=== PATIENT | female | born 1950 | race Caucasian/White ===

== ENCOUNTER 2017-09-13 08:00 | Outpatient (CLI) | payer MEDICARE | END 2017-09-13 08:01 | disposition home or self-care (01) | LOC: BICMAMMO 08:00 | PROVIDERS: ATTEND Family Medicine | DX: Z78.0 Asymptomatic menopausal state (principal); M85.852 Other specified disorders of bone density and structure, left thigh; M85.88 Other specified disorders of bone density and structure, other site | CPT/HCPCS: 77080 ==

== ENCOUNTER 2017-09-13 12:28 | Outpatient (CLI) | payer MEDICARE ==
--- NOTE | 2017-09-13 14:17 | CT ---
CT CHEST WITHOUT CONTRAST: 09/13/2017 PROVIDED CLINICAL HISTORY: Screening. Twenty year smoker. FINDINGS: The heart, pericardium, and great vessels demonstrate an unremarkable, unenhanced CT appearance, with the exception of vascular calcification, including coronary calcium. There is no evidence for thora cic lymph node enlargement. A small hiatal hernia is seen. 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 The visualized portions of the upper abdomen appear otherwise unremarkable. There is a 7 mm average axial dimension noncalcified pulmonary nodule involving the right lower lobe. There is a nodular density, which is subpleural in location, at the medial aspect of the right midd le lobe. This measures about 6 mm. The lungs are otherwise free of significant opacity. The airway appears patent and of normal caliber. There is no evidence for pleural fluid or pneumotho rax. The osseous structures demonstrate no concerning osteoblastic or osteolytic lesions. IMPRESSION: 1. Lung-RADS category 3-Probably benign findings. A 7 mm, noncalcified right lower lobe pulmonary n odule is noted, for which six-month follow-up low-dose CT is recommended. Additional subpleural nodu le involving the right middle lobe should also be followed at that time but may represent a lymph nod e. 2. Porcelain gallbladder. Surgical consultation is recommended. 3. Atherosclerosis. CODE T POS: SINDY
== END 2017-09-13 12:29 | disposition home or self-care (01) ==
LOC: CT 12:28
PROVIDERS: ATTEND Family Medicine
DX: Z87.891 Personal history of nicotine dependence (principal); I70.90 Unspecified atherosclerosis; K82.8 Other specified diseases of gallbladder; R91.1 Solitary pulmonary nodule
CPT/HCPCS: G0297

== ENCOUNTER 2017-11-29 10:23 | Outpatient (CLI) | payer MEDICARE | END 2017-11-29 10:24 | disposition home or self-care (01) | LOC: BICMAMMO 10:23 | PROVIDERS: ATTEND Family Medicine | DX: Z12.31 Encounter for screening mammogram for malignant neoplasm of breast (principal); Z80.3 Family history of malignant neoplasm of breast | CPT/HCPCS: 77063; 77067 ==

== ENCOUNTER 2018-03-23 10:18 | Outpatient (CLI) | payer MEDICARE ==
--- NOTE | 2018-03-23 12:08 | CT ---
CT CHEST WITHOUT CONTRAST LOW DOSE PULMONARY SCREENING CT PULMONARY LUNG SCAN: CLINICAL HISTORY: Pulmonary nodule, followup, abnormal CT of lung, nicotine dependence. FINDINGS: The previously documented 7 mm lymph node of the right lower lobe has slightly increased in volume, m easuring 8 mm in size. The previously noted 6 mm subpleural nodular density of the medial aspect of the right middle lobe is again seen. There is an azygous lobe at the medial right upper lung. No pl eural effusion. No evidence of parenchymal consolidation has developed since the prior exam. There is vascular disease. Regional soft tissues are limited in assessment by noncontrast technique. Incidental note of porcelain gallbladder, partially visualized as was documented on prior scan. Slight interval growth of pulmonary nodule within the right lower lobe now measuring 8 mm compared to 7 mm on prior exam. A 6 mm subpleural nodule of the medial aspect of the right middle lobe is gross ly stable. IMPRESSION: Lung RADS category 4A, suspicious. The previously mentioned 7 mm nodule did slightly increase in vol ume which warrants a 3-month followup low-dose screening CT exam. As this finding is suspicious for an early malignancy, given the interval growth and morphology, additionally recommend pulmonary medic ine consultation for further clinical management. POS: SINDY
== END 2018-03-23 10:19 | disposition home or self-care (01) ==
LOC: CT 10:18
PROVIDERS: ATTEND Family Medicine
DX: R91.8 Other nonspecific abnormal finding of lung field (principal); R91.1 Solitary pulmonary nodule; Z87.891 Personal history of nicotine dependence
CPT/HCPCS: G0297

== ENCOUNTER 2018-05-04 10:14 | Outpatient (CLI) | payer MEDICARE ==
[2018-05-04 12:09] LABS: #Eosinphils 0.1 thou/uL (0.0-0.7); #Lymphocytes 1.2 thou/uL (1.20-3.40); #Monocytes 0.2 thou/uL (0.11-0.59); #Neutrophils 1.5 thou/uL (1.40-6.50); %Basophils 1.2 % (0.0-1.0); %Eosinophils 3.8 % (0.0-10.0); %Lymphocytes 39.2 % (21.0-51.0); %Monocytes 7.1 % (0.0-10.0); %Neutrophils 48.8 % (42.0-75.0); Hemoglobin 12.2 g/dL (12.0-16.0); Mean Corpuscular HGB CONC 32.9 g/dL (32.0-36.0); Mean Corpuscular Volume 78.9 fL (78.0-98.0); Mean Platelet Volume 6.6 fL (7.4-10.4); Platelet Count 121 thou/uL (130-400); RBC Distribution Width 14.1 % (11.5-14.5); Red Blood Cell (RBC) Count 4.69 mill/uL (4.20-5.40); White Blood Cell (WBC) Count 3.1 thou/uL (4.8-10.8)
[2018-05-04 12:43] LABS: ALT (SGPT) 23 U/L (8-55); AST (SGOT) 26 U/L (5-34); Albumin 4.3 g/dL (3.4-4.8); Alkaline Phosphatase 74 U/L (40-150); Anion Gap 13 mmol/L (10-20); BUN (Urea Nitrogen) 11 mg/dL (9.8-20.1); Bilirubin, Direct 0.3 mg/dL (0.1-0.3); Bilirubin, Total 0.8 mg/dL (0.2-1.2); Calc. Creatinine Clearance 0 mL/min (70-130); Calcium 9.8 mg/dL (7.8-10.44); Carbon Dioxide 26 mmol/L (23-31); Chloride 101 mmol/L (98-107); Estimated GFR-MDRD 58; Glucose 218 mg/dL (80-115); Potassium 3.9 mmol/L (3.5-5.1); Protein, Total 7.7 g/dL (6.0-8.3); Sodium 136 mmol/L (136-145)
== END 2018-05-04 10:15 | disposition home or self-care (01) ==
LOC: LABBT 10:14
PROVIDERS: ATTEND Surgery
DX: Z01.818 Encounter for other preprocedural examination (principal); K82.8 Other specified diseases of gallbladder
CPT/HCPCS: 80048; 80076; 85025; 93005; 93010

== ENCOUNTER 2018-11-05 09:49 | Outpatient (CLI) | payer MEDICARE ==
[2018-11-05] MEDS ORDERED: Iopamidol 370 76% 100 ML VIAL ONE (10:58)
--- NOTE | 2018-11-05 13:02 | CT ---
WITHOUT VIEW CHEST WITH CONTRAST: HISTORY: Pulmonary nodule, shortness of breath. COMPARISON: CT 03/23/2018. FINDINGS: [place] node is made of an azygous fissure. There is a nodule within the left upper lobe axial imag e 24 measuring 4 mm which is similar. Right lower lobe nodule measuring up to 9 mm is similar. Righ t middle lobe nodule measures up to 6 mm, similar. No new suspicious pulmonary nodule. There is some scarring in the lingula and right middle lobe. No pleural effusion. No pneumothorax. There is a hypodensity in the right lobe of the thyroid which a nonemergent ultrasound can be perform ed. No mediastinal adenopathy. Mild atherosclerotic plaque of the aorta. Prior cholecystectomy. Mild hepatic cirrhosis. The sternum and manubrium are intact. No suspicious osteolytic or osteoblas tic lesion. No displaced rib fracture. IMPRESSION: Similar appearance to the pulmonary nodules. The recommendation is to return to annual screening low -dose CT in March of 2019. POS: TPC
== END 2018-11-05 09:50 | disposition home or self-care (01) ==
LOC: CANPRECLI → CT 09:49
PROVIDERS: ATTEND Internal Medicine Pulmonary Disease
DX: R91.1 Solitary pulmonary nodule (principal)
CPT/HCPCS: 71260; 82565; Q9967

== ENCOUNTER 2018-12-20 10:06 | Outpatient (CLI) | payer MEDICARE ==
--- NOTE | 2018-12-20 10:40 | ULT ---
FGallbladder ultrasound: Multiple grayscale images of right upper quadrant obtained according to protocol. INDICATION: Pain FINDINGS: Liver: Hepatic steatosis. Gallbladder: Absent Gallbladder wall: Normal. Connors's Sign: Negative Common bile duct is normal. Ascites: None IMPRESSION: Surgical absence of gallbladder. Hepatic steatosis.
== END 2018-12-20 10:07 | disposition home or self-care (01) ==
LOC: BICULT 10:06
PROVIDERS: ATTEND Physician Assistant
DX: R10.11 Right upper quadrant pain (principal); K76.0 Fatty (change of) liver, not elsewhere classified; Z90.49 Acquired absence of other specified parts of digestive tract
CPT/HCPCS: 76705

== ENCOUNTER 2019-05-15 09:46 | Outpatient (CLI) | payer MEDICARE ==
[~2019-05-15 09:46] MED LIST: Iopamidol 370 76% 100 ML VIAL ONE
--- NOTE | 2019-05-15 13:09 | CT ---
CT CHEST WITH CONTRAST: 05/15/19 Axial tomograms with IV enhancement with multiplanar reconstruction. INDICATIONS: Follow-up pulmonary nodule. Comparison made to CT chest 11/05/18 and 03/23/18. FINDINGS: Prominent azygos fissure again noted. The 6 mm nodule in the medial right middle lobe is stable. The right lower lobe nodule appears stable measuring approximately 2 mm today. This does not show sig nificant interval change when compared to 10/26/18. The 4 mm nodule in the mid left upper lobe is stable. No new nodule. No infiltrate or effusion. The mediastinum unremarkable. Images through the upper abd omen unremarkable. Degenerative spine changes. IMPRESSION: Stable pulmonary nodules. The right lower lobe nodule is slightly increased in size from 03/23/18 to ; however, it appears stable from 11/05/18. Repeat chest CT without contrast in six months is rec ommended to confirm stability from 11/05/18. POS: SINDY
== END 2019-05-15 09:47 | disposition home or self-care (01) ==
LOC: CT 09:46
PROVIDERS: ATTEND Internal Medicine Pulmonary Disease
DX: R91.8 Other nonspecific abnormal finding of lung field (principal)
CPT/HCPCS: 71260; 82565; Q9967

== ENCOUNTER 2019-11-11 09:35 | Outpatient (CLI) | payer MEDICARE ==
[2019-11-11] MEDS ORDERED: Iopamidol-370 76% 500 ML 1 ML ONE (10:59)
--- NOTE | 2019-11-11 11:20 | CT ---
CT OF CHEST PERFORMED WITHOUT CONTRAST ENHANCEMENT: HISTORY: Followup pulmonary nodule. COMPARISON: 05/15/2019 study. FINDINGS: Azygous lobe is again incidentally noted. Area of nodularity seen in the right middle lobe along the right heart border is stable at approximately 6 mm. A right lower lobe pulmonary nodule. This is u nchanged in size at 10 mm and an approximately 4-5 mm left upper lobe pulmonary nodule is also unchan ged. No significant mediastinal or hilar adenopathy. Visualized liver parenchyma shows no focal findings. The gallbladder has been removed. RIGHT and le ft adrenal glands are normal. Spleen appears borderline and is only partially visualized. IMPRESSION: Stable bilateral pulmonary nodules. Continued followup is recommended. POS: TPC
== END 2019-11-11 09:36 | disposition home or self-care (01) ==
LOC: BICCT 09:35
PROVIDERS: ATTEND Internal Medicine Pulmonary Disease
DX: R91.1 Solitary pulmonary nodule (principal); R91.8 Other nonspecific abnormal finding of lung field
CPT/HCPCS: 71260; 82565

== ENCOUNTER 2019-11-20 08:59 | Outpatient (CLI) | payer MEDICARE ==
--- NOTE | 2019-11-20 10:26 | MMO ---
Bilateral MAMMO Bilat Screen [facility]. CLINICAL HISTORY: Patient is 69 years old and is seen for screening. The patient has the following family history of breast cancer: paternal grandmother, at age 85. The patient has no personal history of cancer. VIEWS: The views performed were: bilateral craniocaudal with tomosynthesis and bilateral mediolateral oblique with tomosynthesis. FILMS COMPARED: The present examination has been compared to prior imaging studies performed at [facility] on 05/24/2013 and 11/29/2017, and at [facility] on 07/22/2015 and 11/21/2016. This study has been interpreted with the assistance of computer-aided detection. MAMMOGRAM FINDINGS: The breasts are almost entirely fat. There are stable benign appearing calcifications seen in both breasts. There are also vascular calcifications. There are no suspicious masses, suspicious calcifications, or new areas of architectural distortion. IMPRESSION: THERE IS NO MAMMOGRAPHIC EVIDENCE OF MALIGNANCY. A ROUTINE FOLLOW-UP MAMMOGRAM IN 1 YEAR IS RECOMMENDED. THE RESULTS OF THIS EXAM WERE SENT TO THE PATIENT. ACR BI-RADS Category 2 - Benign finding MAMMOGRAPHY NOTE: 1. A negative mammogram report should not delay a biopsy if a dominant of clinically suspicious mass is present. 2. Approximately 10% to 15% of breast cancers are not detected by mammography. 3. Adenosis and dense breasts may obscure an underlying neoplasm. Reported by: DELFIN QUEZADA MD Electonically Signed: [id number]
--- NOTE | 2019-11-20 11:26 | BD ---
BONE DENSITOMETRY USING DEXA: Date: 11/20/2019 HISTORY: 69-year-old female. Exam requested for screening for osteoporosis. FINDINGS: Lumbar Spine: BMD (g/cm2) L1 0.930 T-Score: -0.5 Z-Score: 1.3 L2 0.955 T-Score: -0.7 Z-Score: 1.4 L3 0.979 T-Score: -1.0 Z-Score: 1.2 L4 1.087 T-Score: 0.2 Z-Score: 2.5 L1-L4 0.988 T-Score: -0.5 Z-Score: 1.6 Femoral Neck: 0.645 T-Score: -1.8 Z-Score: -0.1 Total Femur: 0.759 T-Score: -1.5 Z-Score: 0.0 There has been interval improvement of 1% in the bone mineral density of the lumbar spine and a reduc tion of 7.5% in the bone mineral density of the proximal femur since 07/22/2015. The 10 year fracture risk for a major osteoporotic fracture is 10% and for a hip fracture is 1.7%. IMPRESSION: Osteopenia. POS: SINDY
== END 2019-11-20 09:00 | disposition home or self-care (01) ==
LOC: BICMAMMO 08:59
PROVIDERS: ATTEND Family Medicine
DX: Z12.31 Encounter for screening mammogram for malignant neoplasm of breast (principal); Z80.3 Family history of malignant neoplasm of breast; Z78.0 Asymptomatic menopausal state; M85.89 Other specified disorders of bone density and structure, multiple sites
CPT/HCPCS: 77063; 77067; 77080

== ENCOUNTER 2020-06-05 13:19 | Outpatient (CLI) | payer MEDICARE ==
[~2020-06-05 13:19] MED LIST changes: -Iopamidol 370 76% 100 ML VIAL ONE; +Iopamidol-370 76% 500 ML 1 ML ONE
--- NOTE | 2020-06-05 14:13 | CT ---
CT CHEST WITH CONTRAST CLINICAL INDICATION: Lung mass/pulmonary nodules. Follow-up evaluation. COMPARISON: 11/11/2019 and 05/15/2019 FINDINGS: Aorta: Vascular calcifications are seen in the thoracic aorta as well as in the coronary arteries. Lungs: Stable pulmonary nodules are seen bilaterally with a 7 mm pulmonary nodule right middle lobe, 10 mm pulmonary nodule lateral right lower lobe, 8 mm pulmonary nodule medial and lower right lower lobe, and a 5 mm left upper lobe pulmonary nodule. No new pulmonary nodule or mass is seen. There are areas of minimal atelectasis or scarring seen in the right middle lobe and in the lingula. No pleural effusion is seen. Mediastinum: Evidence of a small hiatal hernia again seen Thyroid gland: Dominant heterogeneous nodule right lobe of the thyroid gland with central calcificati on is again seen. This nodule measures 2.2 cm. Thyroid ultrasound is again recommended if this has not been performed. Osseous structures: No acute process. Chest wall: No abnormality visualized. Upper abdomen: Evidence of prior cholecystectomy. Peripheral nodular contour of the liver is seen suggesting possibility of cirrhosis. The spleen is en larged measuring 15 cm in craniocaudal dimensions. A 1.9 cm inferior pole right renal cyst is present. IMPRESSION: 1. Stable bilateral pulmonary nodules. 2. Stable heterogeneous nodule right lobe of thyroid gland. Thyroid ultrasound is suggested if this h as not been performed. 3. Cirrhotic morphology of the liver with splenomegaly. 4. Small hiatal hernia.
== END 2020-06-05 13:20 | disposition home or self-care (01) ==
LOC: BICCT 13:19
PROVIDERS: ATTEND Internal Medicine Pulmonary Disease
DX: R91.8 Other nonspecific abnormal finding of lung field (principal); E04.1 Nontoxic single thyroid nodule; K44.9 Diaphragmatic hernia without obstruction or gangrene; K74.60 Unspecified cirrhosis of liver; R16.1 Splenomegaly, not elsewhere classified
CPT/HCPCS: 71260; Q9967

== ENCOUNTER 2021-06-03 10:42 | Outpatient (CLI) | payer MEDICARE, MEDICAID | END 2021-06-03 10:43 | disposition home or self-care (01) | LOC: BICRAD 10:42 | PROVIDERS: ATTEND Internal Medicine Pulmonary Disease | DX: R06.00 Dyspnea, unspecified (principal) | CPT/HCPCS: 71046 ==

== ENCOUNTER 2021-10-16 10:20 | Emergency (ER) | payer MEDICARE, MEDICAID | END 2021-10-16 11:45 | disposition home or self-care (01) | LOC: ERS 10:20 | DX: K12.1 Other forms of stomatitis (principal); K12.2 Cellulitis and abscess of mouth | CPT/HCPCS: 36416; 99282 ==